=== PATIENT | male | born 1975 | race Caucasian/White ===

== ENCOUNTER 2025-05-08 19:33 | Outpatient (REF) | payer OTHER, SELFPAY ==
--- NOTE | ~2025-05-08 | MR_ITS ---
EXAMINATION: MR LUMBAR SPINE WITHOUT IV CONTRAST CLINICAL INFORMATION: lumbar region, intervertebral disc disorder COMPARISON: None available. TECHNIQUE: MRI of the lumbar spine was obtained using routine sequences without administration of intravenous contrast. FINDINGS: Transitional lumbosacral vertebrae: There is suggestion of lumbarization on the left side of S1. For the purpose of this report, the lowest well-formed intervertebral disc is labeled L5-S1 and rudimentary disc labeled S1-S2. Alignment: Lumbar lordosis is maintained. No subluxation. Vertebrae: No compression fracture. No bone marrow edema. Intervertebral discs: Disc desiccation changes in mild loss of height of L4-L5 disc. Signal and height of the remainder discs are maintained. Conus: Terminates normally at L1-2 level. Visualized conus and cauda equina are unremarkable. Soft tissue: Posterior paraspinal soft tissues are unremarkable. Other findings: No concerning incidental findings. Findings by level: T12-L1: No spinal canal or neuroforaminal stenosis. L1-L2: No spinal canal or neuroforaminal stenosis. L2-L3: No spinal canal or neuroforaminal stenosis. L3-L4: No spinal canal or neuroforaminal stenosis. L4-L5: Moderately bulging disc and shallow right central disc protrusion. No spinal canal or neuroforaminal stenosis. L5-S1: Minimal central disc protrusion. No spinal canal or neuroforaminal stenosis. Sacroiliac joints are unremarkable. MR/MR lumbar spine wo con IMPRESSION: 1. Transitional lumbosacral vertebrae, with suggestion of lumbarization of S1 on the left side. 2. Minimal degenerative disc changes. No severe spinal canal or neuroforaminal stenosis at the lumbar level. Electronically signed by: Brittany Coreas MD 05/09/2025 07:17 AM [facility] [place]
--- OUTSIDE RECORDS SUMMARY | 2025-05-08 19:38 | XMS_ITS | Clinical Summary ---
Author Organization 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 Name Role Phone Unavailable Primary Care Provider Unavailabl e Social History Tobacco Use Types Packs/Day Years Used Date Smoking Tobacco: Never Assessed Sex and Gender Information Value Date Recorded Sex Assigned at Not on file Legal Sex Male 1:08 PM EDT Gender Identity Not on file Sexual Orientation Not on file Plan of Treatment Health Maintenance Due Date Last Done Comments Hepatitis C Virus Screening 1973 HIV Screening 1986 DTaP/Tdap/Td Vaccines (1 - Tdap) 1992 Hepatitis B Vaccines (1 of 3 - 19+ 3-dose series) 04/08 Pneumococcal Vaccines 50+ (1 of 1 - PCV) 2023 Zoster (Shingles) Vaccine (1 of 2) 2023 COVID-19 Vaccine (1 - season) 2025 RSV Vaccine 50 years and old er and Patients (1 - 1-dose 75+ series) 2048
== END 2025-05-08 19:34 | disposition home or self-care (01) ==
LOC: HO.MRI 19:33
PROVIDERS: PCP Family Medicine; Visit Provider Nurse Practitioner Family
DX: M51.86 Other intervertebral disc disorders, lumbar region (principal)
CPT/HCPCS: 72148

== ENCOUNTER → 2025-05-08 19:55 | Outpatient (BNV) | payer OTHER, SELFPAY | PROVIDERS: PCP Family Medicine; Visit Provider Radiology Body Imaging | DX: M51.86 Other intervertebral disc disorders, lumbar region (principal); M51.369 Other intervertebral disc degeneration, lumbar region without mention of lumbar back pain or lower extremity pain | CPT/HCPCS: 72148 ==

== ENCOUNTER 2025-05-11 08:42 | Outpatient (REF) | payer OTHER, SELFPAY ==
--- NOTE | ~2025-05-11 | XR_ITS ---
EXAMINATION: XR LUMBOSACRAL SPINE CLINICAL INFORMATION: M54.9 - Dorsalgia, unspecified COMPARISON: Correlated to MRI dated May 2025 TECHNIQUE: Lateral views in neutral, flexion and extension position. AP view. FINDINGS: No acute cortical disruption or gross malalignment. No gross malalignment during flexion and or extension position. No lytic or blastic lesions. XR/XR lumbar spine 4V min IMPRESSION: No acute fracture or listhesis or instability. Electronically signed by: Thanh Hutchins MD 05/11/2025 10:34 AM [facility]
== END 2025-05-11 08:43 | disposition home or self-care (01) ==
LOC: HO.HOSX 08:42
PROVIDERS: PCP Family Medicine; Visit Provider Physician Assistant
DX: G89.29 Other chronic pain (principal); M54.50 Low back pain, unspecified
CPT/HCPCS: 72110

== ENCOUNTER 2025-05-11 08:42 | Outpatient (AMB) | payer OTHER, SELFPAY ==
--- NOTE | 2025-05-11 08:48 | HO.SPINEOV ---
Vital Signs 05/11/25 08:58 Height 5 ft 11 in Weight 180 lb BMI 25.1 Intake Visit Reasons: lower back back Intake Note: Mr. Martinez is here today c/o low back pain, MRI done at [facility] [place]. Shredding Machine Tender Required: No Allergies No Known Allergies Allergy (Verified 05/11/25 08:59) Physical Exam Vital Signs: BMI result Body Mass Index 25.1 Assessment & Plan Assessment & Plan (1) Back pain: Code(s): M54.9 - Dorsalgia, unspecified Category: Medical Plan This is a very nice 50-year-old self-referred gentleman for evaluation of centralized low back pain. He has had it for many years if not decades, but the last 3-4 years it is more persistent and will not go away. He describes 2 different types of back pain. The 1st is back pain that was on the sides more of an a paraspinal region, which went away after he had RFA of the facet joints at [facility]. The 2nd which he currently still has a very centralized midline pain right around the L4-5 area. It is aggravated with any type of bending. If he leans back feels better. He has been on all the lrqy-gpx-zvbtcdp medications and none of them seem to help. He did physical therapy years ago, continues to do the exercises. Some of the stretching does help. He used to go to a chiropractor but there was diminishing returns with that is so he stopped. He has no pain, tingling or numbness shooting down the legs. He is generally able to sleep relatively comfortably. He will get about 4-5 hours of good night's sleep but then the pain will wake him up in he will have to adjust positions but then generally gets back to sleep. Sitting for any length of time is particularly uncomfortable. He can stand and move around okay but if he is doing anything for too long it does aggravate him. He saw Dr. May at [facility], who did not feel he was a surgical candidate and referred him to the [facility] team where he ultimately underwent the RFA. PMH: Otherwise healthy, no major medical problems and has never had surgery. Social hx: He does not smoke, drink use any recreational drugs Medications: None Allergies: None Physical exam: Awake alert oriented no acute distress, he does have tenderness right along the midline at L4-5, strength is normal in the lower extremities, reflexes slightly brisk. Imaging review: Lumbar MRI done at [facility] shows [id number]-cg-[id number] disc degeneration at L4-5. No evidence of subluxation, Modic endplate changes, fractures etc.. He has some mild facet arthropathy but nothing significant. There is no evidence of nerve compression or stenosis. Impression: 50-year-old male presents with chronic low back pain midline at about the L4-5 level. It has been persistent for the last 3 or 4 years, aggravated with most activity including sitting for any length of time, bending, he can stand and move okay, but if he is doing it too long it will also become uncomfortable. He used to take myps-pjo-zsunpnu pain medications but all of those things stopped working so he discontinued them. He has been through rigorous amounts of conservative treatment as outlined above. Some of the pain was helped by an RFA done at [facility], but it sounds to me like the patient has reached out to them about considering more injections but has not really got a positive response. He is interested in trying something else with a new pain management team. His MRI shows that he has just gnts-cf-jmrcgluw degenerative disc disease at L4-5. It is really not at a level yet where Dr. Graves would typically consider doing fusion on him, especially given his age. I am going to get a set of standing flexion-extension x-rays as a precaution to make sure there is no occult instability. He is interested in following up with a new pain management team so I will refer him to Dr. Sosa. I think it is worth considering an L4-5 epidural. I can see him back after the injection is done and we can talk more about where his pain levels are at. In the interim I will show his imaging to Dr. Graves to see if he has any other thoughts. Thank you for allowing us to care for your patient. The total time spent with this visit with this patient was 45 minutes reviewing history, physical exam, lumbar imaging review, and implementation of treatment plan or further diagnostic testing Alfie Graves MD,PhD [facility] Orders: Orders XR lumbar spine 4V min Today M54.9 - Dorsalgia, unspecified Referrals Physiatry Referral M54.9 - Dorsalgia, unspecified Coding Level of Care Code New Pt Level 4 (17918) Diagnoses Back pain M54.9
[2025-05-11 08:58] VITALS: BMI 25.1
== END 2025-05-11 09:34 | disposition home or self-care (01) ==
PROVIDERS: PCP Family Medicine; Visit Provider Physician Assistant
DX: M54.9 Dorsalgia, unspecified (principal)
CPT/HCPCS: 99204

== ENCOUNTER → 2025-05-11 09:33 | Outpatient (BNV) | payer OTHER, SELFPAY | PROVIDERS: PCP Family Medicine; Visit Provider Radiology Diagnostic Radiology | DX: M54.9 Dorsalgia, unspecified (principal) | CPT/HCPCS: 72110 ==